=== PATIENT | male | born 1995 | race Hispanic/Latino ===

== ENCOUNTER 2017-11-16 09:24 | Emergency (ER) | payer OTHER, SELFPAY ==
[2017-11-16] MEDS ORDERED: IBUPROFEN 400 MG TAB ONE (10:17)
[2017-11-16] MEDS ORDERED: IBUPROFEN 200 MG TAB PO ONE (10:18)
--- NOTE | 2017-11-16 11:00 | ER ---
Nurse's Notes [facility] Name: Joel Claire Age: 22 yrs Sex: Male : 1995 Arrival Date: 11/16/2017 Time: 09:28 Bed 9 Private MD: Diagnosis: Influenza due to unidentified influenza virus Presentation: 11/16 09:30 Presenting complaint: Patient states: "I have bad body pains and my throat and head lk1 hurts sometimes.". Transition of care: patient was not received from another setting of care. Onset of symptoms was November 16, 2017 at 07:00. Care prior to arrival: None. 09:30 Method Of Arrival: Ambulatory lk1 09:30 Acuity: MILLER 4 lk1 Triage Assessment: 09:31 General: Appears in no apparent distress. Behavior is calm, cooperative, appropriate lk1 for age. Pain: Complains of pain in body Pain currently is 7 out of 10 on a pain scale. EENT: Throat is clear. Historical: - Allergies: 09:31 No Known Allergies; lk1 - PMHx: 09:31 None; lk1 - PSHx: 09:31 None; lk1 - Immunization history:: Adult Immunizations up to date. - Social history:: Smoking status: Patient uses tobacco products, smokes one-half pack cigarettes per day. Screenin:36 Abuse screen: Denies threats or abuse. Denies injuries from another. Nutritional hj screening: No deficits noted. Tuberculosis screening: No symptoms or risk factors identified. Fall Risk None identified. Assessment: 09:36 Respiratory: Airway is patent Respiratory effort is even, unlabored, Breath sounds are hj clear bilaterally. 09:40 General: Appears in no apparent distress. uncomfortable, Behavior is calm, cooperative, hj appropriate for age. Pain: Complains of pain in uvula, left aspect of posterior pharynx and right aspect of posterior pharynx. Neuro: Level of Consciousness is awake, alert, obeys commands, Oriented to person, place, time, situation. Cardiovascular: Capillary refill < 3 seconds Patient's skin is warm and dry. GI: No signs and/or symptoms were reported involving the gastrointestinal system. : No signs and/or symptoms were reported regarding the genitourinary system. EENT: Throat is reddened. Derm: No signs and/or symptoms reported regarding the dermatologic system. Musculoskeletal: No signs and/or symptoms reported regarding the musculoskeletal system. 10:54 Reassessment: provider in room discuss POC;. Vital Signs: 09:32 BP 117 / 70; Pulse 104; Resp 16; Temp 101.0(TE); Pulse Ox 98% on R/A; Weight 63.5 kg lk1 (R); Height 5 ft. 5 in. (165.10 cm) (R); Pain 7/10; 10:54 BP 118 / 75; Pulse 94; Resp 18; Temp 99.5; Pulse Ox 100% on R/A; hj 09:32 Body Mass Index 23.30 (63.50 kg, 165.10 cm) lk1 ED Course: 09:28 Patient arrived in ED. mr 09:31 Triage completed. lk1 09:32 Arm band placed on right wrist. 1 09:35 Harris Tatum PA is PHCP. cp 09:35 Teto Leigh MD is Attending Physician. cp 09:36 Jesse Iqbal, RN is Primary Nurse. hj 09:37 Patient has correct armband on for positive identification. Bed in low position. Call hj light in reach. 09:57 Flu and/or RSV swab sent to lab. Strep swab sent to lab. 5 09:[address] [facility] 09:[address] [facility] 11:00 No provider procedures requiring assistance completed. Patient did not have IV access hj during this emergency room visit. Administered Medications: 09:53 Drug: Ibuprofen 600 mg Route: PO; 10:38 Follow up: Response: No adverse reaction; Pain is decreased Outcome: 10:59 Discharge ordered by . 11:00 Discharged to home ambulatory. 11:00 Condition: stable 11:00 Discharge instructions given to patient, Instructed on discharge instructions, follow up and referral plans. medication usage, Demonstrated understanding of instructions, follow-up care, medications, Prescriptions given X 2. 11:03 Patient left the ED. Signatures: Ania Sigala Irene, RN RN Jesse Iqbal, RN JULIO Harris Tatum PA PA cp Kluge, Leah, RN RN lk1 Martinez, Maria [facility]
--- NOTE | 2017-11-16 11:00 | EDPHYS ---
Physician Documentation [facility] Name: Joel Claire Age: 22 yrs Sex: Male : 1995 Arrival Date: 11/16/2017 Time: 09:28 Bed 9 Private MD: ED Physician Teto Leigh HPI: 11/16 09:45 This 22 yrs old Male presents to ER via Ambulatory with complaints of Sore cp Throat, Headache. 09:45 The patient presents with sore throat. cp 09:45 Onset: The symptoms/episode began/occurred this morning. Associated signs and symptoms: cp Pertinent positives: cough, fever, flu-like symptoms, rhinorrhea, body aches, Pertinent negatives diarrhea, vomiting. 09:45 Severity of symptoms: in the emergency department the symptoms are unchanged. cp Historical: - Allergies: 09:31 No Known Allergies; lk1 - PMHx: 09:31 None; lk1 - PSHx: 09:31 None; lk1 - Immunization history:: Adult Immunizations up to date. - Social history:: Smoking status: Patient uses tobacco products, smokes one-half pack cigarettes per day. ROS: 09:55 Constitutional: Positive for body aches, fever, Negative for poor PO intake. cp 09:55 Eyes: Negative for injury, pain, redness, and discharge. cp 09:55 ENT: Positive for sore throat, Negative for drainage from ear(s), ear pain. 09:55 Cardiovascular: Negative for chest pain, edema, palpitations. 09:55 Respiratory: Positive for cough, with no reported sputum, Negative for shortness of breath, wheezing. 09:55 Abdomen/GI: Negative for abdominal pain, nausea, vomiting, and diarrhea, black/tarry stool, rectal bleeding. 09:55 Back: Negative for pain at rest, pain with movement, radiated pain. 09:55 Skin: Negative for cellulitis, rash. 09:55 Neuro: Positive for headache, Negative for altered mental status, weakness. 09:55 All other systems are negative. Exam: 10:03 Constitutional: The patient appears in no acute distress, alert, awake, non-toxic, well cp developed, well nourished, febrile. 10:03 Head/Face: Normocephalic, atraumatic. cp 10:03 Eyes: Pupils equal round and reactive to light, extra-ocular motions intact. Lids and cp lashes normal. Conjunctiva and sclera are non-icteric and not injected. Cornea within normal limits. Periorbital areas with no swelling, redness, or edema. 10:03 ENT: External ear(s): are unremarkable, Ear canal(s): are normal, clear, TM's: bulging, is not appreciated, bilaterally, dullness, bilaterally, erythema, is not appreciated, bilaterally, Nose: nasal drainage, and is seen coming from both nares, that is clear, Mouth: Lips: moist, Oral mucosa: moist, Posterior pharynx: Airway: no evidence of obstruction, patent, Tonsils: with erythema, no enlargement, no exudate, Uvula: midline, swelling, is not appreciated, erythema, that is mild, exudate, is not appreciated, Voice: is normal. 10:03 Neck: ROM/movement: is normal, is supple, without pain, no range of motions limitations, no meningismus, no nuchal rigidity, Lymph nodes: no appreciated lymphadenopathy. 10:03 Chest/axilla: Inspection: normal, Palpation: is normal, no crepitus, no tenderness. 10:03 Cardiovascular: Rate: tachycardic, Rhythm: regular. 10:03 Respiratory: the patient does not display signs of respiratory distress, Respirations: normal, no use of accessory muscles, no retractions, no splinting, no tachypnea, labored breathing, is not present, Breath sounds: are clear throughout, no decreased breath sounds, no stridor, no wheezing. 10:03 Abdomen/GI: Exam negative for discomfort, distension, guarding, Inspection: abdomen appears normal. 10:03 Back: pain, that is mild, ROM is normal. 10:03 Skin: cellulitis, is not appreciated, no rash present. 10:03 Neuro: Orientation: to person, place \T\ time. Mentation: is normal, Cerebellar function: is grossly normal, Motor: moves all fours, strength is normal, Sensation: no obvious gross deficits. Vital Signs: 09:32 BP 117 / 70; Pulse 104; Resp 16; Temp 101.0(TE); Pulse Ox 98% on R/A; Weight 63.5 kg lk1 (R); Height 5 ft. 5 in. (165.10 cm) (R); Pain 7/10; 10:54 BP 118 / 75; Pulse 94; Resp 18; Temp 99.5; Pulse Ox 100% on R/A; hj 09:32 Body Mass Index 23.30 (63.50 kg, 165.10 cm) lk1 MDM: 09:35 Patient medically screened. cp 10:00 Differential diagnosis: epiglottitis, group A strep tonsillitis, laryngitis, cp pharyngitis, tonsillitis, upper respiratory infection, uvulitis, influenza. 10:55 Data reviewed: vital signs, nurses notes, lab test result(s), and as a result, I will cp discharge patient. 10:57 Counseling: I had a detailed discussion with the patient and/or guardian regarding: the cp historical points, exam findings, and any diagnostic results supporting the discharge/admit diagnosis, lab results, the need for outpatient follow up, a family practitioner, to return to the emergency department if symptoms worsen or persist or if there are any questions or concerns that arise at home. 10:57 Response to treatment: the patient's symptoms have mildly improved after treatment, and cp as a result, I will discharge patient. 11/16 09:42 Order name: Flu; Complete Time: 10:31 11/16 10:31 Interpretation: Reviewed. 11/16 09:42 Order name: Strep; Complete Time: 10:31 11/16 10:31 Interpretation: Reviewed. 11/16 10:31 Order name: Throat Culture EDMS Administered Medications: 09:53 Drug: Ibuprofen 600 mg Route: PO; 10:38 Follow up: Response: No adverse reaction; Pain is decreased Disposition: 14:36 Co-signature as Attending Physician, Teto Leigh MD. rn Disposition: 11/16/17 10:59 Discharged to Home. Impression: Influenza due to unidentified influenza virus. - Condition is Stable. - Discharge Instructions: Influenza, Adult. - Prescriptions for Ibuprofen 600 mg Oral Tablet - take 1 tablet by ORAL route every 6 hours As needed take with food; 30 tablet. Tamiflu 75 mg Oral Capsule - take 1 tablet by ORAL route every 12 hours for 5 days; 10 tablet. - Work release form, Medication Reconciliation Form, Thank You Letter, Antibiotic Education, Prescription Opioid Use form. - Follow up: Private Physician; When: 2 - 3 days; Reason: Recheck today's complaints. - Problem is new. - Symptoms have improved. Signatures: Dispatcher [employer] Ana Patricio, RN Teto Ritchie MD MD rn Joaquin, Henry, RN RN hj Page, Corey, PA PA cp Kluge, Leah, RN RN lk1
== END 2017-11-16 11:03 | disposition home or self-care (01) ==
LOC: ER 09:24
DX: J11.1 Influenza due to unidentified influenza virus with other respiratory manifestations; F17.210 Nicotine dependence, cigarettes, uncomplicated
CPT/HCPCS: 87070; 87081; 87804; 99283